=== PATIENT | male | born 1980 | race African-American/Black ===

== ENCOUNTER 2022-04-07 08:07 | Emergency (ER) | payer OTHER ==
[~2022-04-07] VITALS: Ht 182.9 cm; Wt 110.0 kg
[2022-04-07 08:11] VITALS: BP 119/78
[2022-04-07] MEDS ORDERED: HYDR25TA2 PO (08:15)
[2022-04-07] MEDS ORDERED: METF-1211 PO (08:15)
[2022-04-07] MEDS ORDERED: ATOR10TA84 PO (08:15)
[2022-04-07] MEDS ORDERED: EMPA25TA3 PO (08:15)
[2022-04-07 08:46] LABS: COVID AG,FIA SOURCE NASAL SWAB
[2022-04-07] MEDS ORDERED: BENZ-70 PO (13:39)
== END 2022-04-07 14:21 | disposition home or self-care (01) ==
LOC: EMS 08:15
DX: J20.9 Acute bronchitis, unspecified (principal); Z20.822 Contact with and (suspected) exposure to COVID-19; E11.9 Type 2 diabetes mellitus without complications; E78.00 Pure hypercholesterolemia, unspecified; I10 Essential (primary) hypertension
CPT/HCPCS: 71045; 82962; 99284

== ENCOUNTER 2023-10-25 08:42 | Emergency (ER) | payer OTHER ==
[~2023-10-25] VITALS: Ht 185.4 cm; Wt 104.5 kg
[~2023-10-25 08:42] MED LIST: ATOR10TA PO; EMPA25TA3 PO; HYDR25TA2 PO; MAGN400T57 PO; MELO-107 PO; METF-1211 PO
[2023-10-25 08:47] VITALS: TEMP 98.3
[2023-10-25 08:59] LABS: APPEARANCE,URINE CLEAR (CLEAR); BILIRUBIN,URINE NEGATIVE (NEGATIVE); COLOR,URINE LIGHT YELLOW (YELLOW); GLUCOSE, URINE (UA) >=1000 mg/dL (NEGATIVE); KETONES,URINE NEGATIVE (NEGATIVE); LEUKOCYTE ESTERASE ,URINE TRACE (NEGATIVE); NITRATE,URINE NEGATIVE (NEGATIVE); OCCULT BLOOD,URINE NEGATIVE (NEGATIVE); PROTEIN,URINE NEGATIVE (NEGATIVE); SPECIFIC GRAVITIY, URINE 1.039 (1.003-1.030); UROBILINOGEN,URINE <=1.0 mg/dL (<=1.0)
[2023-10-25 09:12] LABS: RBC,URINE 0-2 /HPF (0-2)
[2023-10-25 09:13] LABS: BACTERIA,URINE Few /HPF (None Seen)
[2023-10-25] MEDS: AZITHROMYCIN 500 MG TABLET PO ONE (10:15)
[2023-10-25] MEDS: CefTRIAXone SODIUM 1 GM/VIAL IM ONE (10:16)
[2023-10-25] MEDS: LIDOCAINE/PF 1% 2 ML VIAL IM ONE (10:16)
[2023-10-25] MEDS ORDERED: FLUC150T61 PO (10:34)
[2023-10-25] MEDS ORDERED: CEPH-558 PO (10:34)
[2023-10-25 10:58] VITALS: BP 121/81; PULSE 84; RESP 18
== END 2023-10-25 11:00 | disposition home or self-care (01) ==
LOC: EMS 08:54
DX: N39.0 Urinary tract infection, site not specified (principal); J20.9 Acute bronchitis, unspecified; E11.9 Type 2 diabetes mellitus without complications; E78.00 Pure hypercholesterolemia, unspecified; I10 Essential (primary) hypertension
CPT/HCPCS: 99283; 81001; 87086; 87186; 87491; 87591; 96372; J0696; J3490; Q9967